=== PATIENT | male | born 1960 | race Caucasian/White ===

== ENCOUNTER → 2016-11-08 | Outpatient (CLI) | payer BC, MEDICARE | LOC: RAD 08:19 | DX: R10.9 Unspecified abdominal pain (principal); K80.20 Calculus of gallbladder without cholecystitis without obstruction; K76.0 Fatty (change of) liver, not elsewhere classified; N26.1 Atrophy of kidney (terminal) ==

== ENCOUNTER → 2017-05-21 | Outpatient (CLI) | payer BC, MEDICARE | LOC: PT 08:27 | DX: Z01.818 Encounter for other preprocedural examination (principal); M17.11 Unilateral primary osteoarthritis, right knee ==

== ENCOUNTER 2017-08-09 11:00 | Outpatient (RCR) | payer BC, MEDICARE | END 2017-09-01 | disposition home or self-care (01) | LOC: PT | DX: Z47.1 Aftercare following joint replacement surgery (principal); Z96.651 Presence of right artificial knee joint | CPT/HCPCS: G8978-GP; G8979-GP ==

== ENCOUNTER → 2018-02-19 | Outpatient (CLI) | payer BC, MEDICARE | LOC: RAD 12:49 | DX: I65.23 Occlusion and stenosis of bilateral carotid arteries (principal) ==

== ENCOUNTER 2018-05-06 14:00 | Outpatient (RCR) | payer BC, MEDICARE | END 2018-05-11 | disposition still patient (30) | LOC: PT | DX: Z47.1 Aftercare following joint replacement surgery (principal); Z96.651 Presence of right artificial knee joint | CPT/HCPCS: G8978-GP; G8979-GP ==

== ENCOUNTER → 2018-10-29 | Outpatient (CLI) | payer BC, MEDICARE ==
[2018-10-28 15:31] VITALS: BP 135/80
[~2018-10-29] MED LIST: ALLOPURINOL300 M1 PO; COLACE100 M1 PO; COUMADIN 5MG5 MG/TAB PO; COUMADIN 77.5 MG/TAB PO; COZAAR25 M1 PO; DAILY VALUE1 EACH PO; GLUCOPHAGE PO; GLUCOSAMINE & C1 CA2 PO; JANUVIA 100MG100 MG PO; LEVOTHYROXINE0.05 MG PO; NIASPAN1000 M1 PO; NOVAPLUS L40 MG/0.4 SQ; PROTONIX TR40 M1 PO; ROXICODONE 55 MG/TAB PO; SIMVASTATIN40 M1 PO; TYLENOL325 M1 PO
[2018-10-29 17:25] LABS: PROTHROMBIN TIME 14.4 SECONDS (9.0-12.0)
== END ==
LOC: LAB 16:21
PROVIDERS: Family Medicine
DX: T84.50XA Infection and inflammatory reaction due to unspecified internal joint prosthesis, initial encounter (principal); Z79.01 Long term (current) use of anticoagulants

== ENCOUNTER → 2018-10-31 | Outpatient (CLI) | payer BC, MEDICARE ==
[2018-10-31 16:10] VITALS: BP 107/74
[2018-10-31 17:57] LABS: PROTHROMBIN TIME 16.4 SECONDS (9.0-12.0)
== END ==
LOC: LAB 16:17
PROVIDERS: Family Medicine
DX: T84.50XA Infection and inflammatory reaction due to unspecified internal joint prosthesis, initial encounter (principal); Z79.01 Long term (current) use of anticoagulants

== ENCOUNTER → 2018-11-03 | Outpatient (CLI) | payer BC, MEDICARE ==
[2018-11-02 16:12] VITALS: BP 119/74
[2018-11-03 17:06] LABS: HEMATOCRIT 31.5 % (42.0-52.0); HEMOGLOBIN 10.3 g/dL (13.5-18.0); MEAN PLATELET VOLUME 10.7 fl (7.4-10.4); RED BLOOD COUNT 3.29 M/mm3 (4.20-5.60); RED CELL DISTRIBUTION WIDTH 12.9 % (11.5-14.5); WHITE BLOOD COUNT 7.8 K/mm3 (4.8-10.8)
[2018-11-03 17:29] LABS: ALBUMIN 3.7 g/dL (3.5-5.0); CALCIUM 9.2 mg/dL (8.4-10.2); POTASSIUM 4.1 mmol/L (3.6-5.0); TOTAL BILIRUBIN 0.4 mg/dL (0.2-1.3); TOTAL PROTEIN 7.6 g/dL (6.3-8.2)
[2018-11-03 18:10] LABS: PROTHROMBIN TIME 20.2 SECONDS (9.0-12.0)
== END ==
LOC: LAB 16:22
PROVIDERS: Family Medicine
DX: T84.50XA Infection and inflammatory reaction due to unspecified internal joint prosthesis, initial encounter (principal); Z79.01 Long term (current) use of anticoagulants

== ENCOUNTER → 2018-11-10 | Outpatient (CLI) | payer BC, MEDICARE ==
[2018-11-09 16:11] VITALS: BP 113/72
[2018-11-10 16:51] LABS: HEMATOCRIT 34.2 % (42.0-52.0); HEMOGLOBIN 11.1 g/dL (13.5-18.0); MEAN PLATELET VOLUME 9.9 fl (7.4-10.4); RED BLOOD COUNT 3.58 M/mm3 (4.20-5.60); RED CELL DISTRIBUTION WIDTH 12.7 % (11.5-14.5); WHITE BLOOD COUNT 6.3 K/mm3 (4.8-10.8)
[2018-11-10 16:56] LABS: CALCIUM 9.8 mg/dL (8.4-10.2); TOTAL BILIRUBIN 0.4 mg/dL (0.2-1.3); TOTAL PROTEIN 8.5 g/dL (6.3-8.2)
== END ==
LOC: LAB 16:23
PROVIDERS: Family Medicine
DX: T84.53XD Infection and inflammatory reaction due to internal right knee prosthesis, subsequent encounter (principal); Z79.01 Long term (current) use of anticoagulants

== ENCOUNTER → 2018-11-17 | Outpatient (CLI) | payer BC, MEDICARE ==
[2018-11-16 16:27] VITALS: BP 109/76
[2018-11-17 17:00] LABS: HEMATOCRIT 35.3 % (42.0-52.0); HEMOGLOBIN 11.4 g/dL (13.5-18.0); MEAN PLATELET VOLUME 10.1 fl (7.4-10.4); RED BLOOD COUNT 3.68 M/mm3 (4.20-5.60); RED CELL DISTRIBUTION WIDTH 12.8 % (11.5-14.5); WHITE BLOOD COUNT 7.7 K/mm3 (4.8-10.8)
[2018-11-17 17:23] LABS: ALBUMIN 4.2 g/dL (3.5-5.0); POTASSIUM 3.9 mmol/L (3.6-5.0); TOTAL BILIRUBIN 0.4 mg/dL (0.2-1.3); TOTAL PROTEIN 8.4 g/dL (6.3-8.2)
== END ==
LOC: LAB 16:42
PROVIDERS: Family Medicine
DX: T84.53XD Infection and inflammatory reaction due to internal right knee prosthesis, subsequent encounter (principal); Z79.01 Long term (current) use of anticoagulants

== ENCOUNTER → 2018-11-24 | Outpatient (CLI) | payer BC, MEDICARE ==
[2018-11-23 16:26] VITALS: BP 108/80
[2018-11-24 17:08] LABS: HEMATOCRIT 35.2 % (42.0-52.0); HEMOGLOBIN 11.3 g/dL (13.5-18.0); MEAN PLATELET VOLUME 10.9 fl (7.4-10.4); RED BLOOD COUNT 3.65 M/mm3 (4.20-5.60); RED CELL DISTRIBUTION WIDTH 13.4 % (11.5-14.5); WHITE BLOOD COUNT 7.4 K/mm3 (4.8-10.8)
[2018-11-24 18:01] LABS: ALBUMIN 4.2 g/dL (3.5-5.0); CALCIUM 10.4 mg/dL (8.4-10.2); POTASSIUM 4.1 mmol/L (3.6-5.0); TOTAL BILIRUBIN 0.4 mg/dL (0.2-1.3); TOTAL PROTEIN 8.3 g/dL (6.3-8.2)
== END ==
LOC: LAB 16:46
PROVIDERS: Family Medicine
DX: T84.53XD Infection and inflammatory reaction due to internal right knee prosthesis, subsequent encounter (principal); Z79.899 Other long term (current) drug therapy

== ENCOUNTER → 2018-12-01 | Outpatient (CLI) | payer BC, MEDICARE ==
[2018-11-30 17:15] VITALS: BP 118/77
[2018-12-01 18:23] LABS: HEMATOCRIT 32.7 % (42.0-52.0); HEMOGLOBIN 10.4 g/dL (13.5-18.0); MEAN PLATELET VOLUME 10.9 fl (7.4-10.4); RED BLOOD COUNT 3.37 M/mm3 (4.20-5.60); RED CELL DISTRIBUTION WIDTH 13.6 % (11.5-14.5); WHITE BLOOD COUNT 8.2 K/mm3 (4.8-10.8)
[2018-12-01 18:28] LABS: ALBUMIN 4.2 g/dL (3.5-5.0); CALCIUM 10.2 mg/dL (8.4-10.2); TOTAL BILIRUBIN 0.5 mg/dL (0.2-1.3); TOTAL PROTEIN 8.3 g/dL (6.3-8.2)
== END ==
LOC: LAB 16:33
PROVIDERS: Family Medicine
DX: T84.53XD Infection and inflammatory reaction due to internal right knee prosthesis, subsequent encounter (principal)

== ENCOUNTER 2018-12-04 16:16 | Outpatient (RCR) | payer BC, MEDICARE ==
[2018-10-28 15:31] VITALS: BP 135/80
[2018-10-29 16:28] VITALS: BP 129/77
[2018-10-30 16:20] VITALS: BP 103/69
[2018-10-31 16:10] VITALS: BP 107/74
[2018-11-01 15:32] VITALS: BP 126/75
[2018-11-02 16:12] VITALS: BP 119/74
[2018-11-03 16:25] VITALS: BP 107/63
[2018-11-04 16:37] VITALS: BP 115/73
[2018-11-05 16:30] VITALS: BP 109/77
[2018-11-07 16:10] VITALS: BP 117/71
[2018-11-08 16:18] VITALS: BP 132/78
[2018-11-09 15:56] VITALS: BP 116/71
[2018-11-09 16:11] VITALS: BP 113/72
[2018-11-10 16:48] VITALS: BP 117/78
[2018-11-11 17:35] VITALS: BP 130/82
[2018-11-12 15:30] VITALS: BP 102/75
[2018-11-13 17:33] VITALS: BP 105/71
[2018-11-14 16:25] VITALS: BP 104/79
[2018-11-15 16:07] VITALS: BP 122/79
[2018-11-16 16:27] VITALS: BP 109/76
[2018-11-17 16:32] VITALS: BP 123/73
[2018-11-18 16:58] VITALS: BP 147/84
[2018-11-19 16:31] VITALS: BP 120/71
[2018-11-20 18:10] VITALS: BP 122/92
[2018-11-21 17:59] VITALS: BP 120/83
[2018-11-22 16:35] VITALS: BP 121/84
[2018-11-23 16:26] VITALS: BP 108/80
[2018-11-24 17:19] VITALS: BP 104/71
[2018-11-26 16:47] VITALS: BP 110/73
[2018-11-27 17:51] VITALS: BP 113/65
[2018-11-28 17:12] VITALS: BP 135/77
[2018-11-29 16:45] VITALS: BP 112/71
[2018-11-30 17:15] VITALS: BP 118/77
[2018-12-01 17:01] VITALS: BP 144/82
[2018-12-02 17:09] VITALS: BP 115/85
[2018-12-03 18:58] VITALS: BP 104/79
[~2018-12-04] VITALS: Ht 175.3 cm; Wt 111.4 kg
[2018-12-04 16:38] VITALS: BP 109/72
== END 2018-12-05 10:26 | disposition home or self-care (01) ==
LOC: AMSURD 16:16
DX: T84.50XA Infection and inflammatory reaction due to unspecified internal joint prosthesis, initial encounter (principal)
CPT/HCPCS: J0878

== ENCOUNTER 2018-12-09 16:20 | Outpatient (RCR) | payer BC, MEDICARE ==
[~2018-12-09] VITALS: Ht 175.3 cm; Wt 111.4 kg
[2018-12-09 16:53] VITALS: BP 124/87
== END 2019-03-09 | disposition still patient (30) ==
LOC: AMSURD
DX: T84.53XD Infection and inflammatory reaction due to internal right knee prosthesis, subsequent encounter (principal)

== ENCOUNTER → 2018-12-09 | Outpatient (CLI) | payer BC, MEDICARE ==
[2018-12-04 16:38] VITALS: BP 109/72
[2018-12-09 17:06] LABS: HEMATOCRIT 33.9 % (42.0-52.0); HEMOGLOBIN 10.8 g/dL (13.5-18.0); MEAN PLATELET VOLUME 10.5 fl (7.4-10.4); RED BLOOD COUNT 3.49 M/mm3 (4.20-5.60); RED CELL DISTRIBUTION WIDTH 13.8 % (11.5-14.5); WHITE BLOOD COUNT 5.4 K/mm3 (4.8-10.8)
== END ==
LOC: LAB 16:18
PROVIDERS: Orthopaedic Surgery
DX: T84.53XD Infection and inflammatory reaction due to internal right knee prosthesis, subsequent encounter (principal)

== ENCOUNTER → 2019-03-26 | Outpatient (CLI) | payer BC, MEDICARE ==
[2019-03-26 16:03] LABS: HEMATOCRIT 38.3 % (42.0-52.0); HEMOGLOBIN 12.4 g/dL (13.5-18.0); MEAN PLATELET VOLUME 9.8 fl (7.4-10.4); RED BLOOD COUNT 3.87 M/mm3 (4.20-5.60); RED CELL DISTRIBUTION WIDTH 13.9 % (11.5-14.5); WHITE BLOOD COUNT 6.1 K/mm3 (4.8-10.8)
[2019-03-26 16:12] LABS: ALBUMIN 4.1 g/dL (3.5-5.0); POTASSIUM 4.3 mmol/L (3.5-5.1)
[2019-03-26 16:13] LABS: CALCIUM 10.9 mg/dL (8.3-10.5)
[2019-03-26 16:14] LABS: TOTAL PROTEIN 8.4 g/dL (6.4-8.3)
[2019-03-26 16:16] LABS: TOTAL BILIRUBIN 0.2 mg/dL (0.2-1.2)
== END ==
LOC: LAB 15:10
PROVIDERS: Orthopaedic Surgery
DX: E78.5 Hyperlipidemia, unspecified (principal); E03.9 Hypothyroidism, unspecified; I82.90 Acute embolism and thrombosis of unspecified vein; E13.8 Other specified diabetes mellitus with unspecified complications

== ENCOUNTER 2019-05-01 13:00 | Outpatient (RCR) | payer BC, MEDICARE | END 2019-05-01 13:30 | disposition still patient (30) | LOC: PT 13:00 | DX: M25.561 Pain in right knee (principal); Z96.651 Presence of right artificial knee joint ==

== ENCOUNTER → 2019-05-21 | Outpatient (CLI) | payer BC, MEDICARE ==
[2019-05-21 15:23] LABS: POTASSIUM 4.3 mmol/L (3.5-5.1)
[2019-05-21 15:24] LABS: CALCIUM 10.4 mg/dL (8.3-10.5)
== END ==
LOC: LAB 14:32
DX: T84.53XD Infection and inflammatory reaction due to internal right knee prosthesis, subsequent encounter (principal)

== ENCOUNTER → 2019-09-10 | Outpatient (CLI) | payer BC, MEDICARE | LOC: RAD 14:32 | DX: R42 Dizziness and giddiness (principal); R51 Headache | CPT/HCPCS: A9585 ==

== ENCOUNTER → 2020-02-11 | Outpatient (CLI) | payer BC, MEDICARE | LOC: LAB 09:02 | DX: Z01.818 Encounter for other preprocedural examination (principal); Z20.828 Contact with and (suspected) exposure to other viral communicable diseases ==

== ENCOUNTER → 2020-02-15 | Day surgery (SDC) | payer BC, MEDICARE | LOC: MSO | DX: D64.9 Anemia, unspecified (principal); Z86.010 Personal history of colon polyps; K21.9 Gastro-esophageal reflux disease without esophagitis; I25.10 Atherosclerotic heart disease of native coronary artery without angina pectoris; E78.5 Hyperlipidemia, unspecified; Z86.718 Personal history of other venous thrombosis and embolism; Z87.891 Personal history of nicotine dependence; Z79.01 Long term (current) use of anticoagulants; Z79.899 Other long term (current) drug therapy | CPT/HCPCS: 00813; J2704; J7030 ==

== ENCOUNTER 2021-04-13 12:48 | Emergency (ER) | payer OTHER, MEDICARE ==
[2021-04-13] MEDS ORDERED: ACETAMINOPHEN-H1 TA2 PO (13:04)
[2021-04-13] MEDS ORDERED: PANTOPRAZOLE SO40 MG PO (13:04)
[2021-04-13] MEDS ORDERED: NEURONTIN300 MG/CAP (13:04)
[2021-04-13] MEDS ORDERED: GLIMEPIRIDE2 M1 PO (13:05)
[2021-04-13 13:45] LABS: BASO # 0.03 (0.02-0.10); EOS % 3.1 % (0.0-4.0); HEMATOCRIT 35.2 % (42.0-52.0); HEMOGLOBIN 11.4 g/dL (13.5-18.0); LYMPH# 1.11 (1.50-4.00); MEAN CELL VOLUME 96 fl (78-100); MEAN CORPUSCULAR HEMOGLOBIN 31 pg (27-31); MEAN CORPUSCULAR HGB CONC 32 g/dL (33-37); MEAN PLATELET VOLUME 9.8 fl (7.4-10.4); MONO # 0.77 (0.20-0.80); NEU # 4.36 (1.40-6.50); PLATELET COUNT 226 K/mm3 (130-400); RED BLOOD COUNT 3.66 M/mm3 (4.20-5.60); RED CELL DISTRIBUTION WIDTH 14.1 % (11.5-14.5); WHITE BLOOD COUNT 6.5 K/mm3 (4.8-10.8)
[2021-04-13 13:59] LABS: POTASSIUM 3.6 mmol/L (3.5-5.1); SODIUM 140 mmol/L (136-145)
[2021-04-13 14:00] LABS: CALCIUM 10.2 mg/dL (8.3-10.5)
[2021-04-13 14:01] LABS: GLUCOSE 93 mg/dL (75-110); TOTAL PROTEIN 7.4 g/dL (6.4-8.3)
[2021-04-13 14:02] LABS: CARBON DIOXIDE 21 mmol/L (22-29)
[2021-04-13 14:03] LABS: TOTAL BILIRUBIN 0.4 mg/dL (0.2-1.2)
[2021-04-13 14:06] LABS: AST-SGOT 21 U/L (5-34)
[2021-04-13 14:08] LABS: ALT/SGPT 14 U/L (0-55)
[2021-04-13 14:14] LABS: PROTHROMBIN TIME 19.9 SECONDS (9.0-12.0)
[2021-04-13 14:15] LABS: TROPONIN-I < 0.03 ng/mL (<0.030)
[2021-04-13 15:41] LABS: URINE APPEARANCE CLEAR; URINE BILIRUBIN NEGATIVE (NEGATIVE); URINE BLOOD NEGATIVE (NEGATIVE); URINE COLOR YELLOW; URINE GLUCOSE NEGATIVE (NEGATIVE); URINE KETONE NEGATIVE (NEGATIVE); URINE LEUKOCYTE ESTERASE NEGATIVE (NEGATIVE); URINE NITRATE NEGATIVE (NEGATIVE); URINE PROTEIN(semi-quant) 1+ mg/dL (NEGATIVE); URINE UROBILINOGEN NORMAL (NORMAL); URINE WBC 0-1 /hpf (0-3)
[2021-04-13 15:58] VITALS: BP 116/72
== END 2021-04-13 15:57 | disposition home or self-care (01) ==
LOC: ED 12:48
PROVIDERS: Physician Assistant
DX: N28.9 Disorder of kidney and ureter, unspecified (principal); Y92.009 Unspecified place in unspecified non-institutional (private) residence as the place of occurrence of the external cause; W01.198A Fall on same level from slipping, tripping and stumbling with subsequent striking against other object, initial encounter; E11.9 Type 2 diabetes mellitus without complications; Z86.718 Personal history of other venous thrombosis and embolism; I25.10 Atherosclerotic heart disease of native coronary artery without angina pectoris; Z79.899 Other long term (current) drug therapy; Z79.01 Long term (current) use of anticoagulants
CPT/HCPCS: J7030; L0172

== ENCOUNTER → 2022-05-08 | Outpatient (CLI) | payer MEDICARE ==
[~2022-05-08] MED LIST changes: +ACETAMINOPHEN-H1 TA2 PO; +GLIMEPIRIDE2 M1 PO; +NEURONTIN300 MG/CAP; +PANTOPRAZOLE SO40 MG PO
== END ==
LOC: LAB 18:40
DX: U07.1 COVID-19 (principal)

== ENCOUNTER → 2022-05-09 | Outpatient (CLI) | payer MEDICARE ==
[~2022-05-09] VITALS: Ht 175.3 cm; Wt 111.4 kg
[2022-05-09 13:35] VITALS: BP 108/72
[2022-05-09 14:00] VITALS: BP 116/74
[2022-05-09 14:30] VITALS: BP 120/73
[2022-05-09 15:00] VITALS: BP 106/73
== END ==
LOC: AMSURD 12:01
DX: U07.1 COVID-19 (principal)
CPT/HCPCS: M0222

== ENCOUNTER → 2024-06-16 | Outpatient (CLI) | payer MEDICARE | LOC: RAD 13:02 | DX: N26.1 Atrophy of kidney (terminal) (principal); N13.2 Hydronephrosis with renal and ureteral calculous obstruction; R91.8 Other nonspecific abnormal finding of lung field; Z90.79 Acquired absence of other genital organ(s); Z85.47 Personal history of malignant neoplasm of testis; Z92.3 Personal history of irradiation ==

== ENCOUNTER → 2024-10-20 | Outpatient (CLI) | payer MEDICARE | LOC: RAD 12:07 | DX: M19.071 Primary osteoarthritis, right ankle and foot (principal); Z98.890 Other specified postprocedural states ==